=== PATIENT | female | born 1975 ===

== ENCOUNTER → 2017-04-21 23:58 | Emergency (ER) | payer SELFPAY ==
[~2017-04-21 23:58] MED LIST: Cetirizine* 10 MG TAB PO ONE; LoraTADine TAB(NF) 10 MG TAB (AUTOSUB to CETIRIZINE) PO ONE; Oxymetazoline 0.05% NASAL SPR* 15 ML BTL BOTH NARES ONE
[2017-04-22 00:08] VITALS: BP 118/63
--- NOTE | 2017-04-22 00:12 | ED ---
Allergic Reaction/Systemic - HPI Summary HPI Summary: Patient presents with nasal congestion since this AM that she thinks is related to pollen. She is visiting from [place] so she doesn't have insurance or a primary care here. Her aunt gave her benadryl an hour ago which has not helped. She has a runny nose and watery eyes. No SOB, fever, chills, or cough. - History of Current Complaint Chief Complaint: EDAllergicReaction Time Seen by Provider: 04/22/17 00:02 Hx Obtained From: Patient Onset/Duration: Gradual Onset Timing: Constant Severity Initially: Mild Severity Currently: Moderate Aggravating Factor(s): Other - plants Alleviating Factor(s): Nothing Associated Signs And Symptoms: Positive: Negative - Related Hx Possible Reaction To: Environmental Exposure - Allergies/Home Medications Allergies/Adverse Reactions: Allergies Allergy/AdvReac Type Severity Reaction Status Date / Time No Known Allergies Allergy Verified 04/22/17 00:08 PMH/Surg Hx/FS Hx/Imm Hx Previously Healthy: Yes Infectious Disease History: Denies: Traveled Outside the [place] in Last 30 Days - Family History Known Family History: Positive: None - Social History Occupation: Unemployed Lives: With Family Alcohol Use: Rare Substance Use Type: Reports: None Smoking Status (MU): Never Smoked Tobacco Review of Systems Negative: Fever, Chills, Fatigue Positive: Drainage - clear, Erythema - mild bilateral Positive: Nasal Discharge. Negative: Sore Throat Negative: Shortness Of Breath, Cough Negative: Myalgia Negative: Headache All Other Systems Reviewed And Are Negative: Yes Physical Exam Triage Information Reviewed: Yes Vital Signs Reviewed: Yes Appearance: Positive: Well-Appearing, No Pain Distress, Obese Skin: Positive: Warm, Skin Color Reflects Adequate Perfusion, Dry, Soft Head/Face: Positive: Normal Head/Face Inspection Eyes: Positive: EOMI, CORINNA, Conjunctiva Inflammed - mild bilateral ENT: Positive: Hearing grossly normal, Pharynx normal, TMs normal. Negative: Tonsillar swelling, Trismus, Muffled/hoarse voice Neck: Positive: Supple, Nontender, No Lymphadenopathy Respiratory/Lung Sounds: Positive: Clear to Auscultation, Breath Sounds Present. Negative: Rhonchi, Wheezes Cardiovascular: Positive: RRR Musculoskeletal: Negative: Edema Left, Edema Right Neurological: Positive: Sensory/Motor Intact, Alert, Oriented to Person Place, Time, NV Bundle Intact Distally, Normal Gait Psychiatric: Positive: Affect/Mood Appropriate AVPU Assessment: Alert Allergic Reaction Course/Dx - Diagnoses Differential Diagnosis/HQI/PQRI: Positive: Airway Obstruction, Anaphylaxis, Angioedema, Local Allergic Reaction, Urticaria Provider Diagnoses: Seasonal allergies Discharge - Discharge Plan Condition: Stable Disposition: HOME Additional Instructions: Please use over the counter Zyrtec that you can purchase at a grocery store or pharmacy.
== END | disposition home or self-care (01) ==
LOC: ED 23:58
DX: J30.2 Other seasonal allergic rhinitis (principal); E66.9 Obesity, unspecified
CPT/HCPCS: 99282; A9270-GY